=== PATIENT | female | born 1955 | race Hispanic/Latino ===

== ENCOUNTER 2023-06-29 11:00 | Outpatient (RCR) | payer MEDICARE ==
[~2023-06-29 11:00] MED LIST: ASPIR 8181 MG PO
== END 2023-07-10 ==
LOC: PT 11:00
PROVIDERS: ATTEND Specialist
DX: M75.121 Complete rotator cuff tear or rupture of right shoulder, not specified as traumatic (principal)

== ENCOUNTER 2024-02-25 16:30 | Emergency (ER) | payer SELFPAY ==
[~2024-02-25] VITALS: Ht 157.5 cm; Wt 59.0 kg
[2024-02-25 17:41] VITALS: PULSE 71; RESP 16; TEMP 98.1; O2SAT 98
== END 2024-02-25 20:26 | disposition short-term general hospital (02) ==
LOC: ER 18:56
DX: M54.9 Dorsalgia, unspecified (principal)
CPT/HCPCS: 99282